=== PATIENT | female | born 1935 | race Caucasian/White ===

== ENCOUNTER 2016-12-02 12:27 | Emergency (ER) | payer OTHER ==
--- NOTE | ~2016-12-02 | CR90 ---
[facility] A Service of [facility] & [facility] RADIOLOGY TEXT RESULTS PATIENT: GILBERTO FIELDS LOCATION: [facility] : 35 UNIT #: [id number] AGE: [address]: Deepak Vo MD SEX: F ORDER DR: [id number] [facility] [address] [place], [place] [address] [id number] E MR#: [id number] Acc #: [id number] NAME: GILBERTO FIELDS : 1935 SEX: F STUDY DATE/TIME: 12/02/2016 12:12 UNIT: [facility] ROOM: STUDY DESCRIPTION: CR Elbow 2 View Lt Attending Physician: Deepak Vo M.D. Ordering Physician: [facility] Primary Care Physician: Joey Munoz Jr., M.D. MEDICAL IMAGING REPORT This report is preliminary unless electronic signature is present EXAM Left elbow 12/02/2016 INDICATIONS Left elbow pain after fall today in parking lot. 3 views of the left elbow were obtained. FINDINGS No fracture is identified. Bones are normal. IMPRESSION Normal left elbow. Dictated by... Ravinder Elizondo M.D. THIS IS AN ELECTRONICALLY VERIFIED REPORT Ravinder Elizondo M.D. at 12/02/2016 3:57 PM Jayy TD: 12/02/2016 15:19 JOB #: [id number] MEDICAL IMAGING REPORT COPY
--- NOTE | ~2016-12-02 | CT71 ---
[facility] A Service [facility] RADIOLOGY TEXT RESULTS PATIENT: GILBERTO FIELDS LOCATION: [facility] : 35 UNIT #: [id number] AGE: [address]: Deepak Vo MD SEX: F ORDER DR: [id number] [place] [id number] [facility]. [place], [place] [address] [id number] E MR#: [id number] Acc #: [id number] NAME: GILBERTO FIELDS : 1935 SEX: F STUDY DATE/TIME: 12/02/2016 12:37 UNIT: [facility] ROOM: STUDY DESCRIPTION: CT Head Wo Contrast Attending Physician: Deepak Vo M.D. Ordering Physician: [facility] Primary Care Physician: Joey Munoz Jr., M.D. MEDICAL IMAGING REPORT This report is preliminary unless electronic signature is present EXAM CT scan of the head without contrast 12/02/2016 HISTORY Patient fell today with facial bruising and headache and neck and head trauma. The patient is on blood thinner. COMPARISON STUDIES 09/13/2016 TECHNIQUE Unenhanced images were obtained through the brain. This CT exam was performed with one or more of the following radiation dose reduction techniques: automatic exposure control, adjustment of mA and/or kV according to patient size, and iterative reconstruction. FINDINGS There is mild generalized atrophy. There are no masses or extraaxial fluid collections or hemorrhage. IMPRESSION Generalized atrophy. Otherwise normal. Dictated by... Ravinder Elizondo M.D. THIS IS AN ELECTRONICALLY VERIFIED REPORT Ravinder Elizondo M.D. at 12/02/2016 3:57 PM CATINA/lisa TD: 12/02/2016 15:28 [facility] A Service [facility] RADIOLOGY TEXT RESULTS PATIENT: GILBERTO FIELDS LOCATION: [facility] : 35 UNIT #: [id number] AGE: [address]: Deepak Vo MD SEX: F ORDER DR: JOB #: [id number] MEDICAL IMAGING REPORT COPY
--- NOTE | ~2016-12-02 | CR150 ---
[facility] A Service of [facility] & [facility] RADIOLOGY TEXT RESULTS PATIENT: GILBERTO FIELDS LOCATION: [facility] : 35 UNIT #: [id number] AGE: [address]: Deepak Vo MD SEX: F ORDER DR: [id number] [facility] [address] [place], [place] [address] [id number] E MR#: [id number] Acc #: [id number] NAME: GILBERTO FIELDS : 1935 SEX: F STUDY DATE/TIME: 12/02/2016 12:09 UNIT: [facility] ROOM: STUDY DESCRIPTION: CR Hip Min 2 Views Lt Attending Physician: Deepak Vo M.D. Ordering Physician: Deepak Vo M.D. Primary Care Physician: Joey Munoz Jr., M.D. MEDICAL IMAGING REPORT This report is preliminary unless electronic signature is present EXAM Left hip HISTORY Fall in parking lot today with left hip pain. FINDINGS An AP view pelvis and AP and lateral left hip were obtained. No fractures identified. There is no evidence of degenerative change. IMPRESSION No evidence of acute injury or fracture. Dictated by... Ravinder Elizondo M.D. THIS IS AN ELECTRONICALLY VERIFIED REPORT Ravinder Elizondo M.D. at 12/02/2016 3:57 PM FEL/pcl TD: 12/02/2016 15:16 JOB #: [id number] MEDICAL IMAGING REPORT COPY
--- NOTE | ~2016-12-02 | CT52 ---
[facility] A Service of [facility] RADIOLOGY TEXT RESULTS PATIENT: GILBERTO FIELDS LOCATION: [facility] : 35 UNIT #: [id number] AGE: [address]: Deepak Vo MD SEX: F ORDER DR: [id number] [facility] [address] [place], [place] [address] [id number] E MR#: [id number] Acc #: [id number] NAME: GILBERTO FIELDS : 1935 SEX: F STUDY DATE/TIME: 12/02/2016 12:37 UNIT: [facility] ROOM: STUDY DESCRIPTION: CT Cervical Spine Wo Cont Attending Physician: Deepak Vo M.D. Ordering Physician: [facility] Primary Care Physician: Joey Munoz Jr., M.D. MEDICAL IMAGING REPORT This report is preliminary unless electronic signature is present EXAM CT scan of the cervical spine without contrast 12/02/2016 HISTORY Fall today with facial trauma and neck pain and headache. COMPARISON STUDIES 09/13/2016 TECHNIQUE Axial 2 mm images were obtained through the cervical spine and sagittal and coronal reconstructions were generated. This CT exam was performed with one or more of the following radiation dose reduction techniques: automatic exposure control, adjustment of mA and/or kV according to patient size, and iterative reconstruction. FINDINGS There is mild disc space narrowing at the C6-7 disc space with small posterior osteophyte formation. There is no fracture or subluxation. IMPRESSION Mild degenerative change at C6-7, otherwise normal. Dictated by... Ravinder Elizondo M.D. THIS IS AN ELECTRONICALLY VERIFIED REPORT Ravinder Elizondo M.D. at 12/02/2016 3:57 PM CATINA/lisa TD: 12/02/2016 15:34 [facility] A Service [facility] RADIOLOGY TEXT RESULTS PATIENT: GILBERTO FIELDS LOCATION: [facility] : 35 UNIT #: [id number] AGE: [address]: Deepak Vo MD SEX: F ORDER DR: NISHANT #: [id number] MEDICAL IMAGING REPORT COPY
--- NOTE | ~2016-12-02 | CR172 ---
[facility] A Service of [facility] RADIOLOGY TEXT RESULTS PATIENT: GILBERTO FIELDS LOCATION: [facility] : 35 UNIT #: [id number] AGE: [address]: Deepak Vo MD SEX: F ORDER DR: [id number] [facility] [address] [place], [place] [address] [id number] E MR#: [id number] Acc #: [id number] NAME: GILBERTO FIELDS : 1935 SEX: F STUDY DATE/TIME: 12/02/2016 12:03 UNIT: [facility] ROOM: STUDY DESCRIPTION: CR Knee 3 Views Lt Attending Physician: Deepak Vo M.D. Ordering Physician: Ed Gunnar Garcia M.D. Primary Care Physician: Joey Munoz Jr., M.D. MEDICAL IMAGING REPORT This report is preliminary unless electronic signature is present EXAM Left knee. DATE OF EXAM 12/02/2016, 1203 hours. CLINICAL HISTORY 80-year-old woman who fell in a parking lot today complaining of anterior knee pain and swelling. COMPARISON None. FINDINGS AP, lateral and sunrise views were performed portably. There is no joint effusion or fracture. There is medial compartment joint space loss and spurring. There is mild chondrocalcinosis best seen in the lateral compartment. There is focal soft tissue swelling superficial to the inferior patella, and the inferior patellar tendon measuring up to 2.1 cm anterior to posterior by 6.4 cm cephalocaudad. This could represent edema, fluid and/or hemorrhage within the prepatellar bursa. Subcutaneous hematoma is possible as well. IMPRESSION 1. There is no joint effusion or fracture. 2. There is medial compartment joint space loss and spurring and chondrocalcinosis in the lateral compartment. 3. There is soft tissue swelling superficial to the inferior patella and the infrapatellar tendon measuring up to 6.4 x 2.1 cm which could represent a hematoma, fluid, edema. Fluid or hemorrhage within the prepatellar bursa is possible as well. [facility] A Service of [facility] RADIOLOGY TEXT RESULTS PATIENT: GILBERTO FIELDS [id number] UNIT #: [id number] AGE: [address]: Deepak Vo MD SEX: F ORDER DR: Dictated by... Nusrat Sanders M.D. THIS IS AN ELECTRONICALLY VERIFIED REPORT Nusrat Sanders M.D. at 12/02/2016 8:40 PM BK/jim TD: 12/02/2016 15:20 JOB #: [id number] MEDICAL IMAGING REPORT COPY
--- NOTE | ~2016-12-02 | CT101 ---
[facility] A Service of [facility] RADIOLOGY TEXT RESULTS PATIENT: GILBERTO FIELDS LOCATION: [facility] : 35 UNIT #: [id number] AGE: [address]: Deepak Vo MD SEX: F ORDER DR: [id number] [facility] [address] [place], [place] [address] [id number] E MR#: [id number] Acc #: [id number] NAME: GILBERTO FIELDS : 1935 SEX: F STUDY DATE/TIME: 12/02/2016 12:37 UNIT: [facility] ROOM: STUDY DESCRIPTION: CT Maxillofacial Area Wo Cont Attending Physician: Deepak Vo M.D. Referring Physician: Andres Coffman M.D. Ordering Physician: Ren Garcia M.D. Primary Care Physician: Joey Munoz Jr., M.D. MEDICAL IMAGING REPORT This report is preliminary unless electronic signature is present EXAM CT scan of the facial bones without contrast. DATE OF EXAM 12/02/2016 INDICATION Fall today with facial trauma, left cheek pain. TECHNIQUE Axial 2 mm images were obtained through the facial bones, and coronal and sagittal reconstructions were generated. NOTE: This CT exam was performed with one or more of the following radiation dose reduction techniques: automatic exposure control, adjustment of mA and/or kV according to patient size, and iterative reconstruction. FINDINGS No fractures are visible and there is some stranding in the subcu fat in the left cheek consistent with some bruising. IMPRESSION No fractures visible. There seems to be some stranding in the subcu fat and left cheek, probably due to recent trauma. Dictated by... Ravinder Elizondo M.D. THIS IS AN ELECTRONICALLY VERIFIED REPORT Ravinder Elizondo M.D. at 12/03/2016 11:21 AM FEL/jt [facility] A Service of [facility] RADIOLOGY TEXT RESULTS PATIENT: GILBERTO FIELDS LOCATION: [facility] : 35 UNIT #: [id number] AGE: [address]: Deepak Vo MD SEX: F ORDER DR: TD: 12/02/2016 15:57 JOB #: [id number] MEDICAL IMAGING REPORT COPY
[~2016-12-02 12:27] MED LIST: ALPRAZOLAM PO; ALPRAZOLAM0.25 MG PO; AMLODIPINE BESY10 MG PO; ASPIRIN EC81 M1 PO; ASPIRIN PO; ASPIRIN81 M2 PO; BUMETANIDE1 MG PO; BUMETANIDE2 M1 PO; CALCIUM + D 6001 TA1 PO; CALCIUM + VITAM1 TAB PO; CALCIUM 600 +1 EAC2 PO; CELEXA PO; CERTAGEN PO; CITALOPRAM HBR40 MG PO; CLARITIN10 M3 PO; CLOPIDOGREL BIS75 MG PO; CLOPIDOGREL75 MG PO; DICYCLOMINE HCL20 MG PO; DOC-Q-LACE100 MG PO; DSS100 M1 PO; EXELON3 MG PO; EXELON4.6 MG EXT; FAMOTIDINE PO; FERRO-TIME325 MG PO; IMDUR PO; IMDUR-ER60 M1 PO; IMDUR30 MG PO; IRON325 ( 651 PO; JANUVIA PO; JANUVIA50 MG PO; KLOR-CON PO; LANTUS100 U/ML; LANTUS100 U/ML SUBQ; LASIX PO; LEVEMIR INSULIN SUBQ; LEVEMIR SUBQ; LIPITOR PO; LISINOPRIL PO; LOPRESSOR PO; LORTAB 10-5001 EACH PO; MELADOX3 MG PO; MELATONIN3 M1 PO; METFORMIN PO; METOPROLOL TAR25 MG PO; MICARDIS PO; MILK OF MAGNESIA PO; MULTI VITAMIN1 EACH PO; NAMENDA10 MG PO; NEURONTIN PO; NEURONTIN300 MG PO; NITROGLYGERIN0.4 MG SL; NON-ASPIRIN 8650 MG PO; NORCO 10-325 TA1 TAB PO; NORCO1 TAB 10/3 PO; NORVASC PO; NOVOLIN N100 UNIT/1 SQ; NOVOLIN R100 UNITS/; NOVOLOG100 U/ML; NOVOLOG7030; ONE DAILY ADUL1 EACH PO; PLAVIX PO; PROBIOTIC1 EAC1 PO; PROTONIX PO; PROZAC PO; PSEUDOEPHEDRINE30 M1 PO; RANEXA1000 MG PO; RANEXA500 MG PO; REFRESH5 ML OP; SYNTHROID PO; TOFRANIL-PM75 MG PO; TOPROL XL PO; TOPROL XL50 MG PO; TRICOR PO; TRICOR145 MG PO; TYLENOL ALLERGY1 T11 PO; TYLENOL ALLERGY1 TA1 PO; TYLENOL SINUS C1 TAB PO; VICODIN 5/1 TAB 5/50 PO; VICODIN 5/500 T1 TAB PO; VICODIN PO; VITAMIN B12-FO1 EACH PO; VITAMIN B122500 MC1; VITAMIN D2000 UNIT PO; VITAMIN D50000 UNIT PO; XANAX XR0.5 MG PO; XANAX0.5 MG PO; ZESTRIL40 MG PO; ZOCOR PO; ZOCOR20 MG PO; [UNRECOGNIZED DRUG - OTHER] PO
[2017-02-23] MEDS ORDERED: AMLODIPINE BESYL5 MG PO (08:17)
[2017-02-23] MEDS ORDERED: XANAX0.5 MG PO (08:17)
[2017-02-23] MEDS ORDERED: ASPIRIN81 M2 PO (08:19)
[2017-02-23] MEDS ORDERED: BUMEX1 MG (08:20)
[2017-02-23] MEDS ORDERED: CALCIUM 600 +1 EAC5 PO (08:20)
[2017-02-23] MEDS ORDERED: THERA TEARS1 EAC1 OU (08:21)
[2017-02-23] MEDS ORDERED: CITALOPRAM HBR40 MG PO (08:22)
[2017-02-23] MEDS ORDERED: VITAMIN D2000 UNIT PO (08:22)
[2017-02-23] MEDS ORDERED: DOCUSATE SODIU100 MG PO (08:23)
[2017-02-23] MEDS ORDERED: FERROUS SULFAT325 MG PO (08:23)
[2017-02-23] MEDS ORDERED: CLOPIDOGREL75 MG PO (08:23)
[2017-02-23] MEDS ORDERED: CHILDREN'S ALLE30 M1 PO (08:24)
[2017-02-23] MEDS ORDERED: NEURONTIN300 MG PO (08:24)
[2017-02-23] MEDS ORDERED: LANTUS100 UNITS/ (08:25)
[2017-02-23] MEDS ORDERED: HYDROCODON-ACE1 EAC5 PO (08:25)
[2017-02-23] MEDS ORDERED: ZESTRIL10 MG PO (08:26)
[2017-02-23] MEDS ORDERED: IMDUR-ER60 M1 PO (08:26)
[2017-02-23] MEDS ORDERED: MELATIN3 MG PO (08:26)
[2017-02-23] MEDS ORDERED: NAMENDA10 MG PO (08:27)
[2017-02-23] MEDS ORDERED: MULTIPLE VITAM1 EAC1 PO (08:27)
[2017-02-23] MEDS ORDERED: NITROSTAT0.4 MG SL (08:28)
[2017-02-23] MEDS ORDERED: PROTONIX PO (08:28)
[2017-02-23] MEDS ORDERED: PROBIOTIC1 EAC3 PO (08:29)
[2017-02-23] MEDS ORDERED: RANEXA1000 MG PO (08:29)
[2017-02-23] MEDS ORDERED: RIVASTIGMINE3 MG PO (08:30)
[2017-02-23] MEDS ORDERED: VITAMIN B12-FO1 EACH PO (08:31)
[2017-02-23] MEDS ORDERED: ZOCOR20 MG PO (08:31)
[2017-02-23] MEDS ORDERED: JANUVIA50 MG PO (08:31)
[2017-02-23] MEDS ORDERED: B-121000 MC1 PO (08:32)
== END 2016-12-02 13:51 | disposition home or self-care (01) ==
LOC: CED 12:27
DX: S00.83XA Contusion of other part of head, initial encounter (principal); S80.02XA Contusion of left knee, initial encounter; J44.9 Chronic obstructive pulmonary disease, unspecified; E11.9 Type 2 diabetes mellitus without complications; I10 Essential (primary) hypertension; F17.210 Nicotine dependence, cigarettes, uncomplicated; Z88.8 Allergy status to other drugs, medicaments and biological substances; Z79.01 Long term (current) use of anticoagulants; Z79.899 Other long term (current) drug therapy; Z79.82 Long term (current) use of aspirin; W18.30XA Fall on same level, unspecified, initial encounter
CPT/HCPCS: 29530; 70450; 70486; 72125; 73070; 73502; 73562; 99284

== ENCOUNTER → 2017-02-23 | Day surgery (SDC) | payer OTHER ==
[~2017-02-23] MED LIST changes: +AMLODIPINE BESYL5 MG PO; +B-121000 MC1 PO; +BUMEX1 MG; +CALCIUM 600 +1 EAC5 PO; +CHILDREN'S ALLE30 M1 PO; +DOCUSATE SODIU100 MG PO; +FERROUS SULFAT325 MG PO; +HYDROCODON-ACE1 EAC5 PO; +LANTUS100 UNITS/; +MELATIN3 MG PO; +MULTIPLE VITAM1 EAC1 PO; +NITROSTAT0.4 MG SL; +PROBIOTIC1 EAC3 PO; +RIVASTIGMINE3 MG PO; +THERA TEARS1 EAC1 OU; +ZESTRIL10 MG PO
--- NOTE | ~2017-02-23 | OR ---
Unit #: [id number] #: [id number] Patient: GILBERTO FIELDS [id number] [address] [address] [id number] O MR#: [id number] NAME: GILBERTO FIELDS ROOM: Date of Procedure: 02/23/2017 Admission Date: 02/23/2017 Surgeon: Fran Herrera M.D. : 1935 Attending Physician: Fran Herrera M.D. Primary Care Physician: Nohelia Mayo M.D. PROCEDURE OPERATIVE NOTE PREOPERATIVE DIAGNOSES 1. Back pain. 2. Radiculopathy. 3. Spinal stenosis. 4. Degenerative disk disease. POSTOPERATIVE DIAGNOSES 1. Back pain. 2. Radiculopathy. 3. Spinal stenosis. 4. Degenerative disk disease. PROCEDURE PERFORMED Lumbar epidural steroid injection, intravenous sedation, and fluoroscopic guidance for needle localization. HISTORY Patient is an 81-year-old female with worsening back and bilateral lower extremity pain (1) pathology most significant at L4-5 and moderately severe at L5-S1. Based on histopathology and symptomatology, plan is for trial of epidural steroids. Risks, benefits (2) been reviewed. PROCEDURE Patient was placed in a seated position. Standard monitors were applied. Versed, 1 mg, was given for sedation and anxiolysis, which were adequate. Vital signs remained stable. Sterile prep and drape then of the lumbar area was performed. Skin at the L4-5 level was localized with 1% lidocaine. An 18 gauge Hustead needle was advanced via loss of resistance technique and fluoroscopic guidance in toward the epidural space. After confirming proper positioning with fluoroscopy and radiographic contrast, 80 mg of Depo-Medrol and 4 mL of 0.125% bupivacaine was deposited. The patient tolerated the procedure otherwise well and was discharged to the recovery room in stable condition. Dictated by... rFan Herrera M.D. BARTOLO/deangelo Unit #: [id number] #: [id number] Patient: GILBERTO FIELDS TD: 02/23/2017 09:29 JOB #: [id number] PROCEDURE OPERATIVE NOTE Page 1 of 1 X Fran Herrera MD X PROCEDURE OPERATIVE NOTE
== END | disposition home or self-care (01) ==
LOC: CCSC 07:26
DX: M51.16 Intervertebral disc disorders with radiculopathy, lumbar region (principal); M48.06 Spinal stenosis, lumbar region
CPT/HCPCS: J1040; J2250

== ENCOUNTER 2017-03-28 19:40 | Emergency (ER) | payer OTHER ==
--- NOTE | ~2017-03-28 | CT52 ---
[facility] A Service of [facility] RADIOLOGY TEXT RESULTS PATIENT: GILBERTO FIELDS LOCATION: [facility] : 35 UNIT #: [id number] AGE: [address]: Huber Patrick MD SEX: F ORDER DR: [id number] [place] [address] [id number] E MR#: [id number] Acc #: [id number] NAME: GILBERTO FIELDS : 1935 SEX: F STUDY DATE/TIME: 03/28/2017 20:21 UNIT: [facility] ROOM: STUDY DESCRIPTION: CT Cervical Spine Wo Cont Attending Physician: Huber Patrick M.D. Ordering Physician: Huber Patrick M.D. Primary Care Physician: Nohelia Mayo M.D. MEDICAL IMAGING REPORT This report is preliminary unless electronic signature is present. EXAM CT cervical spine without contrast DATE: 03/28/2017 HISTORY 81-year-old female who fell today while working in the yard and tripped over a small fence. Fell and hit her head, laceration to the forehead and neck pain today. COMPARISON CT cervical spine without contrast 12/02/2016 PROCEDURE 2 mm noncontrast axial images through the cervical spine. Sagittal and coronal reformatted images were obtained. This CT exam was performed with one or more of the following radiation dose reduction techniques: automatic exposure control, adjustment of mA and/or kV according to patient size, and iterative reconstruction. FINDINGS There are degenerative changes of the CT2 dens - anterior C1 ring junction. The craniocervical junction appears intact. No acute cervical spine fracture or subluxation is seen. There is advanced diminished disc height at C6-7. 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 Multilevel facet arthropathy. No high-grade canal or foraminal stenosis is seen. Mild posterior osteophyte formation at C6-7 with probable mild canal stenosis, similar to prior. Bilateral carotid bulb calcifications and probable mild emphysematous changes in the lung apices. IMPRESSION Degenerative changes of the cervical spine, greatest at C6-7. No acute [facility] RADIOLOGY TEXT RESULTS PATIENT: GILBERTO FIELDS [place] [facility] [place] 35 UNIT #: [id number] AGE: [address]: Huber Patrick MD SEX: F ORDER DR: findings or significant change compared to 12/02/2016. Dictated by... Ceci Baker M.D. THIS IS AN ELECTRONICALLY VERIFIED REPORT Ceci Baker M.D. at 03/29/2017 10:40 AM SCOTT/jered TD: 03/29/2017 02:51 JOB #: [id number] MEDICAL IMAGING REPORT Page 1 of 1
--- NOTE | ~2017-03-28 | CT71 ---
[facility] A Service of [facility] RADIOLOGY TEXT RESULTS PATIENT: GILBERTO FIELDS LOCATION: [facility] : 35 UNIT #: [id number] AGE: [address]: Huber Patrick MD SEX: F ORDER DR: [id number] [place] [id number] E MR#: [id number] Acc #: [id number] NAME: GILBERTO FIELDS : 1935 SEX: F STUDY DATE/TIME: 03/28/2017 20:23 UNIT: [facility] ROOM: STUDY DESCRIPTION: CT Head Wo Contrast Attending Physician: Huber Patrick M.D. Ordering Physician: Huber Patrick M.D. Primary Care Physician: Nohelia Mayo M.D. MEDICAL IMAGING REPORT This report is preliminary unless electronic signature is present. EXAM Noncontrast head CT. HISTORY Brought in by EMS, complains of fall working in yard and tripped over small fence fell and hit head. Laceration to forehead. COMPARISON Head CT 12/02/[address] exam was performed with one or more of the following radiation dose reduction techniques: automatic exposure control, adjustment of mA and/or kV according to patient size, and iterative reconstruction. FINDINGS Axial noncontrast imaging of the brain demonstrates generalized atrophy in keeping with advanced age. No mass, mass effect or midline shift. No large vessel infarct. No hemorrhage. Left frontal scalp hematoma. IMPRESSION 1. No acute intracranial abnormality identified. 2. Left frontal scalp hematoma. Dictated by... Derek Malave M.D. THIS IS AN ELECTRONICALLY VERIFIED REPORT Derek Malave M.D. at 03/29/2017 2:49 PM JMS/jered [facility] A Service [facility] RADIOLOGY TEXT RESULTS PATIENT: GILBERTO FIELDS LOCATION: [facility] : 35 UNIT #: [id number] AGE: [address]: Huber Patrick MD SEX: F ORDER DR: TD: 03/29/2017 02:59 JOB #: [id number] MEDICAL IMAGING REPORT Page 1 of 1
== END 2017-03-28 21:16 | disposition home or self-care (01) ==
LOC: SED 19:40
DX: S16.1XXA Strain of muscle, fascia and tendon at neck level, initial encounter (principal); S00.01XA Abrasion of scalp, initial encounter; S00.81XA Abrasion of other part of head, initial encounter; J44.9 Chronic obstructive pulmonary disease, unspecified; I25.10 Atherosclerotic heart disease of native coronary artery without angina pectoris; E11.9 Type 2 diabetes mellitus without complications; E78.5 Hyperlipidemia, unspecified; K21.9 Gastro-esophageal reflux disease without esophagitis; F17.200 Nicotine dependence, unspecified, uncomplicated; Z23 Encounter for immunization; W01.0XXA Fall on same level from slipping, tripping and stumbling without subsequent striking against object, initial encounter; Y92.009 Unspecified place in unspecified non-institutional (private) residence as the place of occurrence of the external cause
CPT/HCPCS: 70450; 72125; 82947; 90471; 90715; 99284

== ENCOUNTER → 2017-06-13 | Day surgery (SDC) | payer OTHER ==
--- NOTE | ~2017-06-13 | OR ---
Unit #: [id number] #: [id number] Patient: GILBERTO FIELDS [id number] [address] [place], [place] [address] [id number] O MR#: [id number] NAME: GILBERTO FIELDS ROOM: Date of Procedure: 06/13/2017 Admission Date: 06/13/2017 Surgeon: Fran Herrera M.D. : 1935 Attending Physician: Fran Herrera M.D. Referring Physician: Fran Herrera M.D. Primary Care Physician: Nohelia Mayo M.D. OPERATIVE REPORT PREOPERATIVE DIAGNOSES Back pain, radiculopathy, spinal stenosis, degenerative disk disease. POSTOPERATIVE DIAGNOSES Back pain, radiculopathy, spinal stenosis, degenerative disk disease. PROCEDURE PERFORMED Lumbar epidural steroid injection with intravenous sedation and fluoroscopic guidance for needle localization. INDICATIONS FOR PROCEDURE The patient is an 81-year-old female with return of back greater than bilateral lower extremity pains associated with previously mentioned diagnosis. Pathologies most significant at L4-L5 level. 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 She last had a single epidural steroid injection done almost 4 months ago. She did well for about 3 months, and she had return of the symptoms, though not to the baseline. She has greater than 50% improvement. Based on a good partial response, pathology, and symptomatology, we are going to proceed with a repeat epidural steroid injection today. DESCRIPTION OF PROCEDURE The patient was placed in a seated position. Standard monitors were applied. 1 mg of Versed was given for sedation and anxiolysis, which were adequate. Vital signs remained stable. Sterile prep and drape then of lumbar area was performed. The skin at the L4-L5 level was localized with 1% lidocaine. An 18-gauge Visterratead needle was then advanced via loss of resistance technique and fluoroscopic guidance in toward the epidural space. After confirming proper positioning with fluoroscopy and radiographic contrast, 80 mg of Depo-Medrol and 4 mL of 0.125% bupivacaine were deposited. The patient tolerated the procedure otherwise well and was discharged to recovery room in stable condition. Dictated by... Katrin Meza/edna TD: 06/13/2017 14:05 JOB #: [id number] [facility]: [facility] Unit #: [id number] #: [id number] Patient: GILBERTO FIELDS OPERATIVE REPORT Page 1 of 1 X Fran eHrrera MD X PROCEDURE OPERATIVE NOTE
== END | disposition home or self-care (01) ==
LOC: CCSC 10:02
DX: M51.16 Intervertebral disc disorders with radiculopathy, lumbar region (principal); I25.10 Atherosclerotic heart disease of native coronary artery without angina pectoris; E11.9 Type 2 diabetes mellitus without complications; J44.9 Chronic obstructive pulmonary disease, unspecified; M81.0 Age-related osteoporosis without current pathological fracture; F32.9 Major depressive disorder, single episode, unspecified; Z88.8 Allergy status to other drugs, medicaments and biological substances; Z91.041 Radiographic dye allergy status; Z79.82 Long term (current) use of aspirin; Z79.02 Long term (current) use of antithrombotics/antiplatelets; Z79.84 Long term (current) use of oral hypoglycemic drugs; Z79.899 Other long term (current) drug therapy
CPT/HCPCS: 82947; J1040; J2250